=== PATIENT | male | born 1975 | race Caucasian/White ===

== ENCOUNTER → 2020-08-24 | Outpatient (CLI) | payer OTHER ==
--- NOTE | 2020-08-24 10:00 | 2DMMODE ---
[facility] [place] [address] 2 D/M-MODE ECHOCARDIOGRAM Name: BRENDEN NGUYEN Room #: REG [facility]#: [id number] Admission: 08/24/20 Attend Phys: Jose Yao MD Discharge: Date of : 79 Report #: [id number] THIS REPORT FOR: cc: Jose Yao MD, Neal A. MD Lammoglia, Francisco J. MD ~ APPROVED REPORT Study performed: 08/24/2020 09:12:41 EXAM: Comprehensive 2D, Doppler, and color-flow Echocardiogram Patient Location: Out-Patient Status: routine BSA: 2.86 HR: 82 bpm BP: 140/100 mmHg Rhythm: Tachycardia Other Information Study Quality: Adequate Technically limited study due to morbid obesity. Indications Essential HTN. 2D Dimensions RVDd: 30.99 mm IVSd: 12.00 (7-11mm) LVOT Diam: 22.38 (18-24mm) LVDd: 52.72 mm PWd: 12.48 (7-11mm) Ascending Ao: 36.13 (22-36mm) LVDs: 34.37 (25-40mm) Aortic Root: 34.19 mm Volumes Left Atrial Volume (Systole) Single Plane 4CH: 59.43 mL Single Plane 2CH: 43.23 mL LA ESV Index: 19.00 mL/m2 Aortic Valve AoV Peak Bib.: 1.34 m/s AO Peak Gr.: 7.23 mmHg LVOT Max P.21 mmHg LVOT Max V: 1.14 m/s [facility] [address] [place] [address] 2 D/M-MODE ECHOCARDIOGRAM Name: BRENDEN NGUYEN Room #: REG CL [facility]#: [id number] Admission: 08/24/20 Attend Phys: Jose Yao, Discharge: Date of : 79 Report #: [id number] NYDIA Vmax: 3.34 cm2 Mitral Valve E/A Ratio: 1.1 MV Decel. Time: 243.21 ms MV E Max Bib.: 0.77 m/s MV A Bib.: 0.70 m/s MV PHT: 70.53 ms IVRT: 69.20 ms Pulmonary Valve PV Peak Bib.: 1.67 m/s PV Peak Gr.: 11.18 mmHg Pulmonary Vein P Vein S: 0.62 m/s P Vein A: 0.31 m/s P Vein D: 0.44 m/s P Vein A Dur.: 90.0 msec P Vein S/D Ratio: 1.41 Tricuspid Valve RAP Estimate: 5.00 mmHg Left Ventricle The left ventricle is normal size. There is normal LV segmental wall motion. Mild concentric left ventricular hypertrophy. Left ventricular systolic function is normal. LVEF is 60-65%. The left ventricular diastolic function is normal. Right Ventricle The right ventricle is normal size. The right ventricular systolic function is normal. Atria The left atrium size is normal. The right atrium size is normal. Aortic Valve The aortic valve is normal in structure. No aortic regurgitation is present. There is no aortic valvular stenosis. Mitral Valve The mitral valve is normal in structure. There is no mitral valve regurgitation noted. No evidence of mitral valve stenosis. Tricuspid Valve The tricuspid valve is normal in structure. There is no tricuspid valve regurgitation noted. Unable to assess PA pressure. [facility] [place] [address] 2 D/M-MODE ECHOCARDIOGRAM Name: BRENDEN NGUYEN Room #: REG CL [facility]#: [id number] Admission: 08/24/20 Attend Phys: Jose Yao, Discharge: Date of : 79 Report #: [id number] Pulmonic Valve The pulmonary valve is normal in structure. Trace pulmonic regurgitation. Great Vessels The aortic root is normal in size. The ascending aorta is normal in size. IVC is normal in size and collapses >50% with inspiration. Pericardium There is no pericardial effusion. <Conclusion> The left ventricle is normal size. LVEF is 60-65%. The aortic valve is normal in structure. The mitral valve is normal in structure. The tricuspid valve is normal in structure. The pulmonary valve is normal in structure. Trace pulmonic regurgitation. There is no pericardial effusion. <ELECTRONICALLY SIGNED> By: Barrett Hall MD 08/24/20 1000 1000 1000 Barrett Hall MD /INF
== END ==
LOC: CV 08:59
PROVIDERS: ATTEND Family Medicine
DX: K76.0 Fatty (change of) liver, not elsewhere classified (principal); R79.89 Other specified abnormal findings of blood chemistry; I10 Essential (primary) hypertension